=== PATIENT | female | born 1955 | race Caucasian/White ===

== ENCOUNTER 2021-08-14 08:09 | Emergency (ER) | payer SELFPAY ==
[~2021-08-14] VITALS: Ht 165.1 cm; Wt 68.0 kg
[~2021-08-14 08:09] MED LIST: ACET500 PO; ALBU90OI INH; AMOCLA875 PO; ASCO250CH PO; CALTRATE 600 P1 EACH PO; CIPR500 PO; CODACE30 PO; CYCL10 PO; Cipro500 MG PO; DIAZ5 PO; DIPH50 PO; DOXY100 PO; ERGO50000 PO; Excedrin Extra1 EACH PO; HYDACE10B PO; HYDACE5 PO; HYDGUAL120 PO; IBUP400; IBUP400 PO; Kaopectate240 MG PO; LORA10ER PO; LORPSEER24; MECL25; MECL25 PO; MULVITA; NAPR220 PO; NAPR500 PO; Naprosyn500 MG PO; OXYACE5T PO; PENVK500 PO; PHENA100 PO; PHENA200 PO; PRED20 PO; PSECHLCR PO; Percocet 5-3251 EACH PO; Pyridium200 MG PO; SULTRIDS PO; TYLENOL ARTHRITIS; Valium5 MG PO
[2021-08-14] MEDS ORDERED: GUAI600T33 PO (08:47)
[2021-08-14] MEDS ORDERED: BENZ100A PO (10:31)
== END 2021-08-14 10:49 | disposition home or self-care (01) ==
LOC: ER 08:09
DX: U07.1 COVID-19 (principal); Z79.899 Other long term (current) drug therapy; Z87.891 Personal history of nicotine dependence
CPT/HCPCS: 99283

== ENCOUNTER 2021-10-13 23:55 | Emergency (ER) | payer OTHER ==
[~2021-10-13 23:55] MED LIST changes: +BENZ100A PO; +GUAI600T33 PO; +IBUP600 PO; +LIDO700A20 TOP; +Robaxin750 MG PO
== END 2021-10-14 04:09 | disposition home or self-care (01) ==
LOC: ER 23:55
DX: R07.89 Other chest pain (principal); Z79.899 Other long term (current) drug therapy; Z87.891 Personal history of nicotine dependence
CPT/HCPCS: J1885

== ENCOUNTER 2022-04-06 10:27 | Emergency (ER) | payer MEDICARE, OTHER ==
[~2022-04-06] VITALS: Ht 165.1 cm; Wt 71.7 kg
[~2022-04-06 10:27] MED LIST changes: +KETO10 PO
[2022-04-06 10:57] LABS: BASOPHILS ABSOLUTE AUTO 0.04 K/mm3 (0.00-0.23); BASOPHILS PERCENT AUTO 1 % (0-2); EOSINOPHILS ABSOLUTE AUTO 0.11 K/mm3 (0.00-0.68); EOSINOPHILS PERCENT AUTO 2 % (0-6); Hematocrit 40.3 % (33.0-51.0); Hemoglobin 13.4 g/dL (11.5-16.0); IMMATURE GRAN ABSOLUTE AUTO 0.01 K/mm3 (0.00-0.10); IMMATURE GRAN PERCENT AUTO 0 % (0-1); LYMPHOCYTES ABSOLUTE AUTO 1.59 K/mm3 (0.84-5.20); LYMPHOCYTES PERCENT AUTO 34 % (21-46); MONOCYTES ABSOLUTE AUTO 0.46 K/mm3 (0.16-1.47); MONOCYTES PERCENT AUTO 10 % (4-13); Mean Corpuscular HGB 30.2 pg (26.0-34.0); Mean Corpuscular HGB Conc 33.3 g/dL (31.5-36.5); Mean Corpuscular Volume 91 fL (80-100); Mean Platelet Volume 9.6 fL (9.1-12.4); NEUTROPHILS ABSOLUTE AUTO 2.52 K/mm3 (1.96-9.15); NEUTROPHILS PERCENT AUTO 53 % (41-73); Platelet Count 275 K/mm3 (150-400); RDW Coefficient Variation 12.7 % (11.7-14.2); RDW Standard Deviation 42.2 fL (35.1-46.3); Red Blood Cell Count 4.44 M/mm3 (3.80-5.20); White Blood Cell Count 4.73 K/mm3 (4.00-11.30)
[2022-04-06 11:13] LABS: Albumin, Blood 3.7 g/dL (3.4-5.0); Albumin/Globulin Ratio 1.1 (0.8-1.8); Bilirubin, Total 0.5 mg/dL (0.1-1.0); Calcium, Blood 8.9 mg/dL (8.5-10.1); Creatinine, Blood 0.93 mg/dL (0.40-1.00); Globulin, Blood 3.5 g/dL (2.2-4.0); Potassium, Blood 4.4 mmol/L (3.5-5.5); Total Protein, Blood 7.2 g/dL (6.4-8.2)
[2022-04-06] MEDS ORDERED: LIDO700A20 TOP (12:16)
[2022-04-06] MEDS ORDERED: IBUP800 PO (12:16)
== END 2022-04-06 12:22 | disposition home or self-care (01) ==
LOC: ER 10:27
PROVIDERS: Student in an Organized Health Care Education/Training Program
DX: M70.62 Trochanteric bursitis, left hip (principal); Z79.52 Long term (current) use of systemic steroids; Z79.899 Other long term (current) drug therapy; Z87.891 Personal history of nicotine dependence
CPT/HCPCS: 36415; 73502; 80053; 85025

== ENCOUNTER 2024-07-26 07:35 | Day surgery (SDC) | payer MEDICARE, OTHER ==
[~2024-07-26 07:35] MED LIST changes: +IBUP800 PO
[2024-07-26] MEDS ORDERED: Lactated Ringer's 1,000 ML IV ONE (07:37)
[2024-07-26] MEDS ORDERED: propofoL 50 ML IV ONE (07:37)
--- NOTE | 2024-07-26 10:48 | NUR ---
07/26/24 1048 Lv Berger PT DID NOT COMPLETE BOWEL PREP. DISCHARGED TO HOME AT 1045.
== END 2024-07-26 10:45 | disposition home or self-care (01) ==
LOC: ORSCSDS 07:35
DX: Z12.11 Encounter for screening for malignant neoplasm of colon (principal); Z53.9 Procedure and treatment not carried out, unspecified reason
CPT/HCPCS: J2704; J7120

== ENCOUNTER 2024-09-07 04:58 | Inpatient (IN) | payer MEDICARE, OTHER ==
[~2024-09-07] VITALS: Ht 165.1 cm; Wt 70.2 kg
[~2024-09-07 04:58] MED LIST changes: +BENADRYL25 MG PO
[2024-09-07] MEDS ORDERED: CALCIUM GLUC IN NACL, ISO-OSM 50 ML IV ONE (07:00)
[2024-09-07] MEDS ORDERED: NS 500 ML IV SCH ×2 (07:00→09:05)
[2024-09-07] MEDS ORDERED: Mag Sulfate 1 GM/D5% 100ML 100 ML IV ONE (07:00)
[2024-09-07 08:33] LABS: Magnesium, Blood 2.5 mg/dL (1.6-2.4)
[2024-09-07 08:34] LABS: Bun/Creatinine Ratio 16.9 (12.0-20.0); Calcium, Blood 9.2 mg/dL (8.5-10.1); Creatinine, Blood 3.19 mg/dL (0.40-1.00); Potassium, Blood 3.3 mmol/L (3.5-5.5)
[2024-09-07 09:11] LABS: Source, Urine Straight Cath
[2024-09-07 09:20] LABS: Appearance, Urine Clear (Clear); Bilirubin, Urine Neg (Neg); Blood, Urine Neg (Neg); Color, Urine Pale Yellow (P-Yellow); Glucose Qualitative, Urine Neg (Neg); Ketones, Urine Neg (Neg); Leukocyte Esterase, Urine Neg (Neg); Nitrite, Urine Neg (Neg); Protein, Urine 1+ (Neg); Specific Gravity, Urine 1.015 (1.003-1.022); Urobilinogen, Urine NORM (Normal)
[2024-09-07] MEDS ORDERED: Potassium Chloride 20 MEQ TabCR PO ONE (09:40)
[2024-09-07] MEDS ORDERED: NS 1,000 ML IV SCH (09:45)
[2024-09-07 09:46] LABS: Base Excess Venous -8.8 mmol/L; Bicarbonate Venous 17.5 mmol/L (24.0-30.0); PCO2 Venous 44.3 mmHg (38-42); pH Blood Venous 7.23 (7.34-7.37)
[2024-09-07 09:53] LABS: BASOPHILS ABSOLUTE AUTO 0.02 K/mm3 (0.00-0.23); BASOPHILS PERCENT AUTO 0 % (0-2); EOSINOPHILS ABSOLUTE AUTO 0.14 K/mm3 (0.00-0.68); EOSINOPHILS PERCENT AUTO 3 % (0-6); Hematocrit 34.5 % (33.0-51.0); Hemoglobin 11.4 g/dL (11.5-16.0); IMMATURE GRAN ABSOLUTE AUTO 0.01 K/mm3 (0.00-0.10); IMMATURE GRAN PERCENT AUTO 0 % (0-1); LYMPHOCYTES ABSOLUTE AUTO 0.82 K/mm3 (0.84-5.20); LYMPHOCYTES PERCENT AUTO 15 % (21-46); MONOCYTES ABSOLUTE AUTO 0.66 K/mm3 (0.16-1.47); MONOCYTES PERCENT AUTO 12 % (4-13); Mean Corpuscular HGB 29.2 pg (26.0-34.0); Mean Corpuscular Volume 88 fL (80-100); Mean Platelet Volume 10.3 fL (9.1-12.4); NEUTROPHILS PERCENT AUTO 70 % (41-73); Platelet Count 236 K/mm3 (150-400); RDW Coefficient Variation 13.8 % (11.7-14.2); RDW Standard Deviation 44.7 fL (35.1-46.3); Red Blood Cell Count 3.91 M/mm3 (3.80-5.20); White Blood Cell Count 5.55 K/mm3 (4.00-11.30)
[2024-09-07] MEDS ORDERED: BACLOFEN5 M5 PO (11:11)
[2024-09-07] MEDS ORDERED: NORTRIPTYLINE H2512 PO (11:11)
[2024-09-07] MEDS ORDERED: LISINOPRIL-HCT1 EACH PO (11:11)
[2024-09-07] MEDS ORDERED: ROSUVASTATIN CA10 MG PO (11:12)
[2024-09-07] MEDS ORDERED: FAMO10 PO (12:26)
[2024-09-07] MEDS ORDERED: MASOPHEN500 MG PO (12:28)
[2024-09-07 12:46] VITALS: BP 151/94
[2024-09-07] MEDS ORDERED: Acetaminophen 325 MG TABLET PO PRN (13:55)
[2024-09-07] MEDS ORDERED: HydrALAZINE HCl 20 MG / ML 1ML Vial IV PRN (14:10)
[2024-09-07 14:34] LABS: Base Excess Venous -5.6 mmol/L; Bicarbonate Venous 19.1 mmol/L (24.0-30.0); PCO2 Venous 44.4 mmHg (38-42)
[2024-09-07 14:39] LABS: pH Blood Venous 7.28 (7.34-7.37)
[2024-09-07 15:26] VITALS: BP 138/90
--- NOTE | 2024-09-07 17:24 | NUR ---
EOS: PATIENT IS ALERT AND ORIENTED X 4 ABLE TO MAKE NEEDS KNOWN, HAS BEEN COOPERATIVE AND PLEASANT, SLOW TO RESPOND STILL ENDORSING SOME MINOR NUMBNESS AND TINGLING OF THE UPPER EXTREMES, VITALS SIGNS STABLE. MILD SYSTOLIC BP TO THE 150'S IMPROVING WITH FLUIDS TO THE 130'S. MATHIS PLACED IN THE ED, DRAINING WELL TO GRAVITY, CLEAR YELLOW MUCH OUTPUT INFUSING 100 mL OF NS. PATIENT DENIES CEHST PAIN PRESSURE OR SOB AT REST. DOES ENDORSE A GARCIA TREATED WITH PRN TYLENOL NO ACUTE CONCERNS NOTED PLAN OF CARE CONTINUES.
[2024-09-07 20:13] LABS: Base Excess Venous -4.8 mmol/L; Bicarbonate Venous 20.8 mmol/L (24.0-30.0); PCO2 Venous 32.3 mmHg (38-42)
[2024-09-07 20:37] VITALS: BP 138/78
[2024-09-07] MEDS ORDERED: Heparin Sodium,Porcine 5,000 UNIT/0.5 ML SDV SC SCH (21:00)
--- NOTE | 2024-09-07 22:14 | NUR ---
SHIFT SUMMARY: PT A&OX4 CALM AND COOPERATIVE. VSS ON RA. MATHIS IN PLACE D/T RETENTION. DRAINING TO GRAVITY. CLEAR, YELLOW URINE. NO S/S OF INFECTION. PT DENIES BURNING/PAIN. BEDREST D/T GENERALIZED WEAKNESS. INFUSING NS @ 100ML/HR. PT TRANSFERRED TO MEDICAL FLOOR. REPORT GIVEN TO ROOM 363 NURSE AND PT LEFT UNIT AT 2130.
[2024-09-07] MEDS ORDERED: Melatonin 5 MG Tablet PO SCH (23:30)
--- NOTE | 2024-09-08 01:16 | NUR ---
PT TRANSFERRED TO MEDICAL FLOOR RM#[id number] @2129. REPORT RECEIVED FROM PCU NURSE LITTLE @2114. PT ARRIVED IN A HOSPITAL BED, REMAINED IN BED. PT IS A/O X4, PLEASANT AND COOPERATIVE WITH CARE. EDUCATED MEDICAL PHYSICIST LIGHT AND FALL PRECAUTIONS. PT BROUGHT ALL HER BELONINGS WITH HER. [facility] MATHIS IN PLACE FOR RETENTION. SNACK PROVIDED. NS INFUSING ORDERED. BED AT THE LOWEST POSITION, CALL LIGHT W/I REACH. CONTINUING PT EDUCATION, PT VERBALIZED UNDERSTANDING. NEW ORDER FOR MELATONIN 5MG PO QHS RECEIVED FROM THE ON-CALL HOSPITALIST. PT REPORTED THAT SHE HAS BEEN AWAKE 24HRS. ADMINISTERED ORDERED AT HS.
[2024-09-08 04:25] VITALS: BP 149/94
[2024-09-08 06:01] LABS: BASOPHILS ABSOLUTE AUTO 0.03 K/mm3 (0.00-0.23); BASOPHILS PERCENT AUTO 1 % (0-2); EOSINOPHILS ABSOLUTE AUTO 0.17 K/mm3 (0.00-0.68); EOSINOPHILS PERCENT AUTO 4 % (0-6); Hematocrit 32.3 % (33.0-51.0); Hemoglobin 11.1 g/dL (11.5-16.0); IMMATURE GRAN ABSOLUTE AUTO 0.01 K/mm3 (0.00-0.10); IMMATURE GRAN PERCENT AUTO 0 % (0-1); LYMPHOCYTES PERCENT AUTO 15 % (21-46); MONOCYTES ABSOLUTE AUTO 0.57 K/mm3 (0.16-1.47); MONOCYTES PERCENT AUTO 12 % (4-13); Mean Corpuscular HGB 30.1 pg (26.0-34.0); Mean Corpuscular HGB Conc 34.4 g/dL (31.5-36.5); Mean Corpuscular Volume 88 fL (80-100); Mean Platelet Volume 10.4 fL (9.1-12.4); NEUTROPHILS ABSOLUTE AUTO 3.32 K/mm3 (1.96-9.15); NEUTROPHILS PERCENT AUTO 69 % (41-73); Platelet Count 258 K/mm3 (150-400); Red Blood Cell Count 3.69 M/mm3 (3.80-5.20)
[2024-09-08 06:32] LABS: Bun/Creatinine Ratio 20.6 (12.0-20.0); Calcium, Blood 8.9 mg/dL (8.5-10.1); Creatinine, Blood 1.6 mg/dL (0.40-1.00); Potassium, Blood 3.7 mmol/L (3.5-5.5)
[2024-09-08 07:35] VITALS: BP 166/99
[2024-09-08] MEDS ORDERED: Calcium/Vit D 600 mg-400 Unit Tab PO SCH (09:00)
[2024-09-08] MEDS ORDERED: Famotidine 20 MG Tab PO SCH (09:00)
[2024-09-08] MEDS ORDERED: Rosuvastatin Calcium 10 MG Tab PO SCH (09:00)
[2024-09-08 15:58] VITALS: BP 171/101
--- NOTE | 2024-09-08 17:23 | NUR ---
SUMMARY- PT A/O X3, USES CALL LIGHT/KNOWS HER LIMITS. GOT UP IN THE CHAIR TODAY WITH 2 RN GAIT/FWW, SLOW SHUFFELING GAIT TO CHAIR. SAT UP IN CHAIR MOST OF THE DAY. CONT IVF INFUSING MOST OF THE DAY. PT TOLERATING FOOD AND FLUIDS. MATHIS DRAINING CLEAR YELLOW, LIGHT. PT WILL DC WITH MATHIS RELATED TO RETENTIONE. WILL REPORT TO KRISTOFER RN
[2024-09-08 20:30] VITALS: BP 177/100
--- NOTE | 2024-09-08 22:38 | NUR ---
NEW T-ORDER RECEIVED FROM THE ON-CALL HOSPITALIST DR. CR: -SEROQUEL PO 50MG X1. ENTERED TO [email or web address], SEE EMAR.
[2024-09-09 03:52] VITALS: BP 160/91
--- NOTE | 2024-09-09 04:06 | NUR ---
SHIFT SUMMARY NO ACUTE EVENTS DURING THIS SHIFT. PT IS A/O X3-4, ABLE TO MAKE HER NEEDS KNOWN AND COOPERATIVE WITH CARE. MATHIS DRAINING YELLOW COLOR URINE. MEDICATED PER EMAR FOR C/O H/A 12/24. PT DENIES CP/PRESSURE AND SOB AT HS. REPOSITIONED WITH PILLOWS IN BED. PLAN IS TO D/C TODAY WITH HOME HEALTH AND KEEP THE MATHIS IN UNTIL HOME. WILL HAVE A VOIDING TRIAL AT HOME. BED AT THE LOWEST POSITION, CALL LIGHT W/I REACH.
[2024-09-09 05:36] LABS: BASOPHILS ABSOLUTE AUTO 0.04 K/mm3 (0.00-0.23); BASOPHILS PERCENT AUTO 1 % (0-2); EOSINOPHILS ABSOLUTE AUTO 0.08 K/mm3 (0.00-0.68); EOSINOPHILS PERCENT AUTO 1 % (0-6); Hemoglobin 11.7 g/dL (11.5-16.0); IMMATURE GRAN ABSOLUTE AUTO 0.02 K/mm3 (0.00-0.10); IMMATURE GRAN PERCENT AUTO 0 % (0-1); LYMPHOCYTES ABSOLUTE AUTO 0.86 K/mm3 (0.84-5.20); LYMPHOCYTES PERCENT AUTO 14 % (21-46); MONOCYTES ABSOLUTE AUTO 0.51 K/mm3 (0.16-1.47); MONOCYTES PERCENT AUTO 8 % (4-13); Mean Corpuscular HGB 29.3 pg (26.0-34.0); Mean Corpuscular HGB Conc 33.4 g/dL (31.5-36.5); Mean Corpuscular Volume 88 fL (80-100); Mean Platelet Volume 10.4 fL (9.1-12.4); NEUTROPHILS ABSOLUTE AUTO 4.58 K/mm3 (1.96-9.15); NEUTROPHILS PERCENT AUTO 75 % (41-73); Platelet Count 280 K/mm3 (150-400); RDW Coefficient Variation 14.1 % (11.7-14.2); RDW Standard Deviation 45.1 fL (35.1-46.3); Red Blood Cell Count 3.99 M/mm3 (3.80-5.20); White Blood Cell Count 6.09 K/mm3 (4.00-11.30)
[2024-09-09 05:56] LABS: Bun/Creatinine Ratio 21.8 (12.0-20.0); Calcium, Blood 9.6 mg/dL (8.5-10.1); Creatinine, Blood 1.1 mg/dL (0.40-1.00); Potassium, Blood 3.6 mmol/L (3.5-5.5)
[2024-09-09 07:46] VITALS: BP 133/79
[2024-09-09] MEDS ORDERED: AmLODIPine Besylate 5 MG Tab PO SCH (09:00)
[2024-09-09] MEDS ORDERED: Tamsulosin HCl 0.4 MG Cap PO SCH (09:00)
--- NOTE | 2024-09-09 16:42 | NUR ---
PT MATHIS CATHETER CLAMPED AT [address] MORALES REGARDING BLADDER TRAINING. PT AT 1310 STATED THAT SHE FELT THE URGE TO URINATE AND CATHETER REMOVED. PT UP TO BSC AND NO VOID COMPLETED WITH RESIDUAL AMOUNT VIA BLADDER SCAN OF 192. CALL TO DR. MORALES AND VERBAL DIRECTION GIVEN TO MONITOR PT AND RE-SCAN AT 1630. PT UP TO BATHROOM AT 1625 AND PT VOIDED 400. POST VOID SCAN RESIDUAL 185. CALL TO DR. MORALES AND NEW ORDERS TO MONITOR PT VOIDS AND COMPLETE BLADDER SCAN POST VOIDS. PT UPDATED OF PLAN AND IN AGREEMENT.
[2024-09-09 17:04] VITALS: BP 145/87
--- NOTE | 2024-09-09 18:12 | NUR ---
END OF SHIFT SUMMARY: PT IS A/O X3 WITH SOME NOTED ANXIETY RELATED TO CATHETER AND GOING HOME WITH IT IN PLACE. DISCUSSION WITH DR. MORALES AND MATHIS REMOVED AND STAFF TO MONITOR UO AND COMPLETE POST VOID SCANS. PT DENIES ANY OTHER COMPLAINTS OR CONCERNS AND NO PAIN TODAY. PT UP IN HALLWAY WITH PT AND WALKING WELL WITH WALKER. PT UP TO CHAIR SEVERAL TIMES TODAY AND IS "FEELING BETTER". NO ACUTE CHANGES THIS SHIFT. PT RESTING WELL AND CALL LIGHT WITHIN REACH.
[2024-09-09 19:14] VITALS: BP 169/95
[2024-09-10 01:16] VITALS: BP 143/79
--- NOTE | 2024-09-10 02:09 | NUR ---
VOIDED AMOUNTS, BLADDER SCANNED AFTER; RETAINING AMOUNTS OF WRITING OF THIS NOTE: @2027 VOIDED 500MLS; RETAINING 192MLS. @0200 VOIDED 240MLS; RETAINING 200MLS. ENCOURAGING PO FLUIDS. PT SITTING IN THE CHAIR, CALL LIGHT W/I REACH. PT IS ABLE TO MAKE HER NEEDS KNOWN. INTAKE FLUIDS: 840MLS (TEA, H20).
[2024-09-10 04:25] VITALS: BP 165/85
--- NOTE | 2024-09-10 04:30 | NUR ---
SHIFT SUMMARY NO ACUTE EVENTS DURING THIS SHIFT. PT IS 1-PERSON ASSIST WITH FWW TO THE RESTROOM. HAT IN THE TOILET. BLADDER SCANNED AFTER EACH VOID. SEE PREVIOUS NOTE. CURRENTLY RETAINING 60MLS IN THE BLADDER AFTER LAST VOID (500MLS OUTPUT). PT UP IN THE CHAIR, AWAKE MOST OF THE NIGHT. PT DENIES A NEED FOR ADDITIONAL SLEEP AID. PRN MELATONIN ADMINISTERED AT HS. PRN IV HYDRAZALINE ADMINISTERED FOR ELEVATED BP. BM X2 DURING THIS SHIFT. BED AT THE LOWEST POSITION, CALL LIGHT W/I REACH. PT IS A/O X4, ABLE TO MAKE HER NEEDS KNOWN AND COOPERATIVE WITH CARE, PLEASANT.
[2024-09-10 06:07] LABS: Bun/Creatinine Ratio 15.4 (12.0-20.0); Creatinine, Blood 0.91 mg/dL (0.40-1.00); Potassium, Blood 3.7 mmol/L (3.5-5.5)
[2024-09-10 07:12] VITALS: BP 138/81
[2024-09-10] MEDS ORDERED: Acetaminophen650 M1 PO (13:09)
[2024-09-10] MEDS ORDERED: AMLO5 PO (13:12)
[2024-09-10] MEDS ORDERED: TAMS.4ER PO (13:13)
--- NOTE | 2024-09-10 14:43 | NUR ---
DISCHARGE NOTE: WENT OVER DISCHARGE WITH THE PATIENT, IV REMOVED, AND PATIENT GOT DRESSED AND GATHERED BELONGINGS. PATIENT WAS WHEELED DOWN TO [facility] AND PICKED UP BY DAUGHTER. NO SIGNS OR SYMPTOMS OF DISTRESS DURING DISCHARGE.
== END 2024-09-10 14:37 | disposition home health service (06) | DRG 683 ==
LOC: ER 04:58 → PCU 09:27 → MEDS 21:24
PROVIDERS: Student in an Organized Health Care Education/Training Program; ADMIT Family Medicine
PROC: 0T9B70Z Drainage of Bladder with Drainage Device, Via Natural or Artificial Opening (ICD-10-PCS; principal; 2024-09-07)
DX: N17.9 Acute kidney failure, unspecified (principal); E87.1 Hypo-osmolality and hyponatremia; E87.4 Mixed disorder of acid-base balance; R33.9 Retention of urine, unspecified; E86.0 Dehydration; E87.6 Hypokalemia; I10 Essential (primary) hypertension; Z66 Do not resuscitate; M79.18 Myalgia, other site; D64.9 Anemia, unspecified; F17.290 Nicotine dependence, other tobacco product, uncomplicated; M19.90 Unspecified osteoarthritis, unspecified site; E78.5 Hyperlipidemia, unspecified; Z90.710 Acquired absence of both cervix and uterus; Z98.890 Other specified postprocedural states; Z79.899 Other long term (current) drug therapy
CPT/HCPCS: 36415; 51701; 51702; 76770; 80048; 82330; 82550; 82803; 83735; 85025; 93005; 93010; 96365; 96375; 97110; 97116; 97161; 97530; 99285-25; A9270; J0360; J0612; J1644; J3475; J7030

== ENCOUNTER → 2024-11-09 | Outpatient (CLI) | payer MEDICARE, OTHER ==
[~2024-11-09] MED LIST changes: +AMLO5 PO; +Acetaminophen650 M1 PO; +BACLOFEN5 M5 PO; +FAMO10 PO; +LISINOPRIL-HCT1 EACH PO; +MASOPHEN500 MG PO; +NORTRIPTYLINE H2512 PO; +ROSUVASTATIN CA10 MG PO; +TAMS.4ER PO
[2024-11-09 18:24] LABS: Creatinine, Urine Random 40.60 mg/dL (27.00-270.00)
[2024-11-09 18:30] LABS: Microalb/Creat Ratio UR, Rand Unable to Calculate mg/g (0.000-30.000); Microalbumin, Random Urine <5.000 mg/L (0.000-20.000)
== END ==
LOC: LAB 14:51 → LAB SHORT 14:51
PROVIDERS: Family Medicine
DX: I10 Essential (primary) hypertension (principal)
CPT/HCPCS: 82043; 82570